=== PATIENT | female | born 1965 | race Caucasian/White ===

== ENCOUNTER 2016-11-29 05:46 | Day surgery (SDC) | payer OTHER ==
[~2016-11-29] VITALS: Ht 162.6 cm; Wt 84.0 kg
[~2016-11-29 05:46] MED LIST: ADDERALL10 MG PO; ADDERALL20 MG PO; ADVAIR 250/501 DISK IH; ALEVE220 MG PO; AMBIEN10 MG PO; AZITHROMYCIN500 MG PO; CAYSTON75 MG/1 ML; ESCITALOPRAM OX20 MG PO; LEVAQUIN750 MG PO; LEXAPRO20 MG PO; MULTI-DAY VITA1 EACH PO; OMEPRAZOLE40 M1 PO; PANCREASE MT PO; PANCREAZE 4,201 EACH; PANCREAZE 4,201 EACH PO; PROVENTIL,2.5 MG/3 M IH; PULMOZYME2.5 MG/2.5; PULMOZYME2.5 MG/2.5 IH; SINGULAIR10 MG PO; VENTOLIN HFA18 GM IH; XARELTO15 MG PO; XARELTO20 MG PO; ZENPEP DR 10,01 EACH PO; ZENPEP DR 40,01 EACH PO; ZOLPIDEM TARTRA10 MG; [UNRECOGNIZED DRUG - OTHER]
[2016-11-29 06:33] VITALS: BP 125/71
[2016-11-29 07:24] LABS: METH RESISTANT S AUREUS PCR POSITIVE (NEGATIVE)
[2016-11-29 07:26] LABS: PROBE CHECK PASS
[2016-11-29] MEDS ORDERED: ENDOCET 5-3251 EACH PO (08:44)
[2016-11-29 10:15] VITALS: BP 129/62
[2016-11-29 10:57] VITALS: BP 105/72
== END 2016-11-29 11:05 | disposition home or self-care (01) ==
LOC: SDC 05:46
PROVIDERS: Obstetrics & Gynecology Obstetrics
PROC: 0U5B8ZZ Destruction of Endometrium, Via Natural or Artificial Opening Endoscopic (ICD-10-PCS; principal; 2016-11-29)
DX: N92.0 Excessive and frequent menstruation with regular cycle (principal); E84.9 Cystic fibrosis, unspecified; Z86.711 Personal history of pulmonary embolism; Z79.01 Long term (current) use of anticoagulants; Z88.1 Allergy status to other antibiotic agents
CPT/HCPCS: 87641; 88305; J0330; J1100; J1170; J1200; J1885; J2405; J3010

== ENCOUNTER 2017-06-09 12:33 | Emergency (ER) | payer OTHER ==
[~2017-06-09] VITALS: Ht 162.6 cm; Wt 82.1 kg
[~2017-06-09 12:33] MED LIST changes: +ENDOCET 5-3251 EACH PO
[2017-06-09 13:26] LABS: HEMATOCRIT 44.5 % (36.0-46.0); MCH 29.7 PG (29.0-34.0); MCHC 32.6 G/DL (30.0-36.0); MEAN PLAT.VOLUME 9.4 uM^3 (9.5-12.4); PLATELET COUNT 194 K/uL (156-360); RBC DIS.WIDTH-CV 13.6 % (11.8-14.6); RED BLOOD COUNT 4.89 M/uL (3.80-5.20); WHITE BLOOD COUNT 11.6 K/uL (4.1-10.2)
[2017-06-09 13:36] LABS: CHLORIDE 105 mEq/L (99-109); POTASSIUM 4.3 mEq/L (3.7-5.4); SODIUM 141 mEq/L (136-147)
[2017-06-09 13:38] LABS: GLUCOSE 96 mg/dL (70-99)
[2017-06-09 13:39] LABS: ANION GAP 11 MEQ/L (2-14)
[2017-06-09 13:40] LABS: INTER. NORMALIZED RATIO 1.3; PROTHROMBIN TIME 14.1 SEC (10.2-12.9)
[2017-06-09 13:41] LABS: GFR ESTIMATE (CALCULATED) > 59 mL/min/
[2017-06-09 13:42] LABS: UREA NITROGEN (BUN) 12 mg/dL (9-23)
[2017-06-09 13:43] LABS: D-DIMER ELISA < 150.00 ng/mLDDU (<230); PTT 30.6 SEC (25-37)
[2017-06-09 13:50] LABS: QUANTITATIVE HCG < 4.0 MIU/ML; TROP-I INTERPRETATION NEGATIVE; TROPONIN-I < 0.01 ng/mL (0.0-0.30)
[2017-06-09 17:09] LABS: TROP-I INTERPRETATION NEGATIVE; TROPONIN-I < 0.01 ng/mL (0.0-0.30)
[2017-06-09 17:40] VITALS: BP 165/84
== END 2017-06-09 17:41 | disposition home or self-care (01) ==
LOC: EME 12:33
PROVIDERS: Physician Assistant
DX: R07.9 Chest pain, unspecified (principal); M32.9 Systemic lupus erythematosus, unspecified; E84.9 Cystic fibrosis, unspecified; K21.9 Gastro-esophageal reflux disease without esophagitis; Z86.711 Personal history of pulmonary embolism; Z79.01 Long term (current) use of anticoagulants
CPT/HCPCS: 71020; 80048; 84484; 84702; 85027; 85379; 85610; 85730; 93005; 99281; 99284

== ENCOUNTER 2018-03-06 18:01 | Emergency (ER) | payer OTHER ==
[~2018-03-06] VITALS: Ht 172.7 cm; Wt 92.1 kg
[2018-03-06 18:25] LABS: CHLORIDE 105 mEq/L (99-109); POTASSIUM 4.3 mEq/L (3.7-5.4); SODIUM 135 mEq/L (136-147)
[2018-03-06 18:26] LABS: GLUCOSE 225 mg/dL (70-99)
[2018-03-06 18:27] LABS: BASOPHIL (%) 0.6 % (0-1); BASOPHIL COUNT 0.1 K/uL (0-0.1); EOSINOPHIL (%) 0.8 % (0-5); EOSINOPHIL COUNT 0.1 K/uL (0-0.3); HEMATOCRIT 49.4 % (36.0-46.0); HEMOGLOBIN 16.9 G/DL (11.9-15.5); IMMATURE GRANULOCYTE (%) 0.4 % (0.0-0.7); LYMPHOCYTE (%) 38.5 % (15-42); LYMPHOCYTE COUNT 3.6 K/uL (1.0-2.8); MCHC 34.2 G/DL (30.0-36.0); MCV 90.5 FL (83-99); MONOCYTE (%) 6.1 % (3-12); MONOCYTE COUNT 0.6 K/uL (0-0.8); NEUTROPHIL (%) 53.6 % (45-76); NEUTROPHIL COUNT 5.1 K/uL (1.8-6.4); PLATELET COUNT 279 K/uL (156-360); RBC DIS.WIDTH-CV 13.1 % (11.8-14.6); RED BLOOD COUNT 5.46 M/uL (3.80-5.20); WHITE BLOOD COUNT 9.4 K/uL (4.1-10.2)
[2018-03-06 18:30] LABS: CREATININE 0.8 mg/dL (0.6-1.3); GFR ESTIMATE (CALCULATED) > 59 mL/min/
[2018-03-06 18:31] LABS: UREA NITROGEN (BUN) 22 mg/dL (9-23)
[2018-03-06 18:38] LABS: TROP-I INTERPRETATION NEGATIVE; TROPONIN-I < 0.01 ng/mL (0.0-0.30)
[2018-03-06] MEDS ORDERED: PEPCID40 MG PO (20:14)
[2018-03-06] MEDS ORDERED: BENADRYL25 MG PO (20:14)
[2018-03-06] MEDS ORDERED: PREDNISONE20 MG PO (20:14)
[2018-03-06 20:40] VITALS: BP 138/87
== END 2018-03-06 20:35 | disposition home or self-care (01) ==
LOC: EME 18:01
PROVIDERS: Emergency Medicine
DX: T78.40XA Allergy, unspecified, initial encounter (principal); X58.XXXA Exposure to other specified factors, initial encounter; L50.9 Urticaria, unspecified; R11.0 Nausea; R22.0 Localized swelling, mass and lump, head; R00.0 Tachycardia, unspecified; Z79.01 Long term (current) use of anticoagulants
CPT/HCPCS: 80048; 84484; 85025; 93005; 99281; 99285; J2930; S0028